=== PATIENT | female | born 2000 | race Caucasian/White ===

== ENCOUNTER → 2021-02-14 | Outpatient (CLI) | payer BC ==
[2021-02-14 16:36] LABS: BASO # 0.01 (0.02-0.10); EOS # 0.01 (0.04-0.40); EOS % 0.1 % (1.0-5.0); HEMATOCRIT 39.5 % (37.0-47.0); HEMOGLOBIN 13.3 g/dL (12.5-16.0); LYMPH# 1.96 (1.50-4.00); MEAN CELL VOLUME 89 fl (78-100); MEAN CORPUSCULAR HEMOGLOBIN 30 pg (27-31); MEAN CORPUSCULAR HGB CONC 34 g/dL (33-37); MEAN PLATELET VOLUME 9.3 fl (7.4-10.4); MONO # 0.41 (0.20-0.80); NEU # 4.84 (1.40-6.50); PLATELET COUNT 300 K/mm3 (130-400); RED BLOOD COUNT 4.44 M/mm3 (4.10-5.30); RED CELL DISTRIBUTION WIDTH 11.7 % (11.5-14.5); WHITE BLOOD COUNT 7.2 K/mm3 (4.8-10.8)
[2021-02-14 16:46] LABS: ALBUMIN 4.3 g/dL (3.5-5.0)
[2021-02-14 16:47] LABS: POTASSIUM 4.3 mmol/L (3.5-5.1)
[2021-02-14 16:48] LABS: CALCIUM 9.6 mg/dL (8.3-10.5)
[2021-02-14 16:49] LABS: TOTAL PROTEIN 7.2 g/dL (6.4-8.3)
[2021-02-14 16:51] LABS: TOTAL BILIRUBIN 0.3 mg/dL (0.2-1.2)
== END ==
LOC: LAB 16:22
PROVIDERS: Nurse Practitioner
DX: R10.9 Unspecified abdominal pain (principal)